=== PATIENT | female | born 1975 | race Caucasian/White ===

== ENCOUNTER → 2016-11-26 | Day surgery (SDC) | payer OTHER ==
[~2016-11-26] VITALS: Ht 180.3 cm; Wt 82.7 kg
== END | disposition home or self-care (01) ==
LOC: FAS 11-04 09:30 → FOR 11-04 09:30 → FAS 07:09
DX: N93.8 Other specified abnormal uterine and vaginal bleeding (principal); N92.1 Excessive and frequent menstruation with irregular cycle; N94.6 Dysmenorrhea, unspecified; N64.4 Mastodynia; Z98.51 Tubal ligation status; Z87.891 Personal history of nicotine dependence; Z80.3 Family history of malignant neoplasm of breast; Z80.1 Family history of malignant neoplasm of trachea, bronchus and lung; E66.3 Overweight; Z68.26 Body mass index [BMI] 26.0-26.9, adult
CPT/HCPCS: 84703; 88305; J1100; J1885; J2310; J2405; J2704; J3010